=== PATIENT | male | born 1970 | race Caucasian/White ===

== ENCOUNTER 2020-06-28 05:21 | Day surgery (SDC) | payer BC ==
--- NOTE | 2020-06-25 07:17 | HP ---
PATIENT: JOCELYNE JO MEDICAL RECORD: [id number] ACCOUNT: [id number] LOCATION:[facility] : 70 ADMISSION DATE: 06/28/20 PCP: HISTORY AND PHYSICAL EXAMINATION HISTORY OF PRESENT ILLNESS: Mr. Jo is 50. He is having problems with chronic throat irritation, tonsillar hypertrophy, recurrent uvula edema. He has been admitted for tonsillectomy, uvulectomy, indirect laryngoscopy and possible biopsy. PAST MEDICAL HISTORY: Includes hypertension, sleep apnea. PAST SURGICAL HISTORY: Nasal surgery 20 years ago, hemorrhoidectomy. CURRENT MEDICATIONS: Benazepril, zolpidem, testosterone. ALLERGIES: No known drug allergies. PHYSICAL EXAMINATION: GENERAL: He is healthy-appearing, developmentally normal. FACE: Normal, symmetric, no lesions. EYES: Sclerae and conjunctivae are normal. EARS: Canals and TMs are normal. NOSE: No masses, polyps, or drainage. ORAL CAVITY AND OROPHARYNX: Large tonsils, edematous bulbous uvula. NECK: No masses, no adenopathy. CHEST: Clear. CARDIOVASCULAR: Regular rate and rhythm. No murmurs. EXTREMITIES: Normal. IMPRESSION: Chronic throat irritation, tonsillar hypertrophy, recurrent uvula edema, sleep apnea. PLAN: Tonsillectomy, uvulectomy, indirect laryngoscopy and possible biopsies for the persistent throat irritation and tobacco use. TRANSINT:[id number] Voice Confirmation ID: [id number] DOCUMENT ID: [id number] HANNA LAKE MD at 0717 CC: [id number] DICTATION DATE: 06/24/20 1529 [employer] EXECUTIVE: 06/24/20 [id number] [place] [id number]
[~2020-06-28] VITALS: Ht 175.3 cm; Wt 90.9 kg
[~2020-06-28 05:21] MED LIST: AMBIEN10 MG PO; BENAZEPRIL PO; TESTOSTERONE IM
[2020-06-28 05:42] LABS: BASOPHILS 0.6 % (0-2); EOSINOPHILS 2.2 % (0-7); HEMOGLOBIN 18.6 g/dL (13.5-17.5); IMMATURE GRANULOCYTES 0.3 % (0-5); LYMPHOCYTE ABS# 2.14 10x3/uL (1.32-3.57); LYMPHOCYTES 30.7 % (15-50); MCH 30.8 pg (26.0-34.0); MCHC 33.8 g/dL (31.0-37.0); MCV 91.2 fL (80.0-100.0); MEAN PLATELET VOLUME 9.3 fL (7.4-10.4); MONOCYTES 7.7 % (2-11); NEUTROPHIL ABS# 4.08 10x3/uL (1.78-5.38); NEUTROPHILS 58.5 % (40-80); PLATELET COUNT 176 10x3/uL (130-400); RBC 6.03 10x6/uL (4.20-6.10); RDW 12.4 % (11.5-14.5)
[2020-06-28 06:04] LABS: ANION GAP 13.4 mmol/L (8-16); CALCIUM 8.7 mg/dL (8.5-10.1); CARBON DIOXIDE 26.4 mmol/L (21.0-32.0); CREATININE - SERUM 1.5 mg/dL (0.6-1.3); POTASSIUM - SERUM 3.8 mmol/L (3.5-5.1)
[2020-06-28 06:55] VITALS: BP 143/94; Ht 175.3 cm; Wt 90.9 kg
--- NOTE | 2020-06-28 10:22 | NUR ---
DC INSTRUCTIONS GIVEN TO PT/SPOUSE. STATES UNDERSTANDING. DC'D IV CATH FULLY INTACT. WILL DC PT SHORTLY.
--- NOTE | 2020-06-28 10:33 | NUR ---
PT LEFT UNIT VIA WC AT 1030
--- NOTE | 2020-06-28 16:32 | OP ---
PATIENT NAME: MACKENZIE PARSONS MEDICAL RECORD: [id number] :70 LOCATION:[facility] ADMISSION DATE: SURGEON: HANNA KING MD DATE OF OPERATION: 06/28/2020 PREOPERATIVE DIAGNOSES: Chronic pharyngitis, recurrent uvula edema, chronic throat soreness and tobacco use. POSTOPERATIVE DIAGNOSES: Chronic pharyngitis, recurrent uvula edema, chronic throat soreness and tobacco use. PROCEDURE: Tonsillectomy, uvulectomy, direct laryngoscopy, biopsy. SURGEON: Hanna King MD ANESTHESIA: General orotracheal. BLOOD LOSS: 5 mL. SPECIMENS: Right and left tonsil, biopsy of left posterior oropharynx. COMPLICATIONS: None. DISPOSITION: Recovery, stable. DESCRIPTION OF PROCEDURE: He was brought to the operating room and placed in supine position, sedated and intubated by anesthesia. The table was turned 90 degrees. Head drape was applied. He was positioned for endoscopy. A plastic upper tooth guard was placed. A Kleinsasser J laryngoscope was used to examine the hypopharynx, lateral pharyngeal jj, posterior pharyngeal wall, vallecula, base of tongue, epiglottis, entire supraglottic larynx, postcricoid area and AE folds and the vocal cords. Only abnormality seen was looked like an enlarged lymphoid follicle left posterior pharynx down low just above the piriform. This kind of stood out as little different. Upbiting 4-mm cup forceps was used to basically remove almost all of that for a biopsy. The rest of the hypopharynx and larynx looked good. The Kleinsasser J laryngoscope was removed. The plastic tooth guard was removed. A Kg-Tarik mouth gag was inserted and elevated on a towel on his chest. The palate was examined and palpated. He had this huge uvula with the rugated folds, obviously been quite edematous at times. The tonsils are both enlarged and cryptic with tonsillitis, but the tonsillith material was somewhat black. He had a right posterior mandibular molar that was exposed partially, but no obvious infection, but it looked like it was in bad shape. The right tonsil was grasped at the superior pole with a straight Allis clamp. Spatula tip cautery on a setting of 10 was used to dissect out the tonsil along its capsule, preserving the anterior and posterior tonsillar pillar. Just a tremendous amount of caseous and inflammatory material in there. The left tonsil was really the same, though it was removed in the same fashion. Then, the uvula was removed close to its base with a spatula tip cautery on a setting of 10. Bleeding was controlled with suction cautery. The pharynx was irrigated. Tonsillar fossa was agitated. Suction cautery on a setting of 20 was used to control any bleeding. Then, the uvula defect in the superior tonsillar poles were closed with interrupted horizontal mattress 4-0 Vicryl. With the field clean and dry, the Kg-Tarik mouth gag was let down and removed. He was awakened, extubated, and transported to recovery in good condition. No complications. OPERATIVE REPORT [id number] MACKENZIE PARSONS TRANSINT:[id number] Voice Confirmation ID: [id number] DOCUMENT ID: [id number] HANNA KING MD at 1632 CC: [id number] DICTATION DATE: 06/28/2059 [employer] WEIGHER: 06/28/20 1138 [facility] 06/28/20 [facility] [address] [place] [address]
== END 2020-06-28 10:30 | disposition home or self-care (01) ==
LOC: D.OPS 05:21
PROVIDERS: Anesthesiology; ATTEND Otolaryngology
DX: J95.830 Postprocedural hemorrhage of a respiratory system organ or structure following a respiratory system procedure (principal)

== ENCOUNTER 2020-06-29 17:18 | Emergency (ER) | payer BC ==
[~2020-06-29] VITALS: Ht 175.3 cm; Wt 93.2 kg
--- NOTE | ~2020-06-29 | OP ---
PATIENT NAME: MACKENZIE PARSONS MEDICAL RECORD: [id number] :70 LOCATION:[facility] ADMISSION DATE: SURGEON: HANNA KING MD DATE OF OPERATION: 06/29/2020 PREOPERATIVE DIAGNOSIS: Post-tonsillar hemorrhage. POSTOPERATIVE DIAGNOSIS: Post-tonsillar hemorrhage. PROCEDURE: Control of post-tonsillectomy hemorrhage. SURGEON: Hanna King MD ANESTHESIA: General orotracheal. BLOOD LOSS: 10 cc during the procedure. COMPLICATIONS: None. DISPOSITION: Recovery, stable. FINDINGS: Bleeding right mid tonsillar fossa. DESCRIPTION OF PROCEDURE: He was brought to the operating room and placed in supine position, sedated and intubated by anesthesia. The table was turned 90 degrees. Head drape was applied. He was positioned for tonsillectomy. Using a headlight, a Kg-Tarik mouth gag was carefully inserted and elevated on a towel on his chest. Clot was suctioned from the pharynx and right tonsillar fossa. Bleeding was immediately identified from the right mid tonsillar fossa. Suction cautery was used to stop the bleeding and then the rest of the nasopharynx and pharynx were suctioned out. It was irrigated. Yankauer was used to agitate the tonsils and carefully inspected. No further bleeding. Then, an 18-Japanese NG tube was passed through the mouth into the stomach at least half a dozen times until nothing returned as far as blood from the stomach. Once that was completed, the pharynx was again suctioned, irrigated and agitated the tonsil fossa with warm saline, carefully inspected. Some small areas cauterized. With the field completely clean and dry, the Kg-Tarik gag was let down for a minute and raised back up, looked agitated again and nothing was bleeding, completely clean and dry. The Kg-Tarik mouth gag was let down and removed. He was awakened, extubated, and transported to recovery in good condition. No complications. TRANSINT:[id number] Voice Confirmation ID: [id number] DOCUMENT ID: [id number] HANNA KING MD CC: [id number] DICTATION DATE: 06/29/202240 [employer] [facility] [facility]: 06/30/20 0110 [facility] 06/30/20 [address] [place] [address]
[2020-06-29 17:24] VITALS: Ht 175.3 cm; Wt 93.2 kg
[2020-06-29 17:56] LABS: BASOPHILS 0.1 % (0-2); EOSINOPHILS 0.1 % (0-7); HEMATOCRIT 51.9 % (42.0-54.0); HEMOGLOBIN 17.5 g/dL (13.5-17.5); IMMATURE GRANULOCYTES 0.4 % (0-5); LYMPHOCYTE ABS# 2.48 10x3/uL (1.32-3.57); LYMPHOCYTES 13.1 % (15-50); MCH 30.7 pg (26.0-34.0); MCHC 33.7 g/dL (31.0-37.0); MCV 91.1 fL (80.0-100.0); MEAN PLATELET VOLUME 9.7 fL (7.4-10.4); MONOCYTES 8.3 % (2-11); PLATELET COUNT 239 10x3/uL (130-400); RDW 12.5 % (11.5-14.5); WBC 18.9 10x3/uL (4.8-10.8)
[2020-06-29 18:17] LABS: APTT 27.9 SECONDS (22.8-39.4); INR 1.03 (0.85-1.17); PROTIME 12.5 SECONDS (11.6-15.0)
[2020-06-29 18:20] LABS: CALC OSMOLALITY 269 mosm/kg (275-300); CALCIUM 8.9 mg/dL (8.5-10.1); CARBON DIOXIDE 26.3 mmol/L (21.0-32.0); CHLORIDE - SERUM 100 mmol/L (98-107); GLUCOSE 113 mg/dL (74-106); SODIUM 133 mmol/L (136-145); UREA NITROGEN 20 mg/dL (7-18)
[2020-06-29 18:23] LABS: CREATININE - SERUM 1.1 mg/dL (0.6-1.3); POTASSIUM - SERUM 4.9 mmol/L (3.5-5.1); eGFR NON AFRICAN AMERICAN 75 mL/min (90-120)
[2020-06-29 18:26] LABS: ALBUMIN 3.3 g/dL (3.4-5.0); ALKALINE PHOSPHATASE 81 U/L (30-120); ALT (SGPT) 46 U/L (10-68); BILIRUBIN - TOTAL 0.43 mg/dL (0.2-1.3); PROTEIN - SERUM 7.5 g/dL (6.4-8.2)
[2020-06-30 00:28] VITALS: BP 143/69
== END 2020-06-30 00:28 | disposition other institution (70) ==
LOC: D.ER 17:18
PROVIDERS: Family Medicine; Otolaryngology
DX: R04.1 Hemorrhage from throat (principal); E87.6 Hypokalemia; D72.829 Elevated white blood cell count, unspecified; I10 Essential (primary) hypertension; K21.9 Gastro-esophageal reflux disease without esophagitis